=== PATIENT | female | born 1955 | race Caucasian/White ===

== ENCOUNTER → 2016-09-17 | Outpatient (CLI) | payer BC ==
[~2016-09-17] MED LIST: ATROVENT15 ML INH; ATROVENT30 ML INH; CALCIUM 600 +1 EAC1 PO; FLONASE 0.05%50 MCG INH; FLOVENT DISKUS50 MCG INH; IMITREX PO; MULTIVITAMINS PO; SYMBICORT160 MCG/4. INH; SYMBICORT80 MCG/4.1 INH; VITAMIN D31000 UNI2 PO; VITAMINC500 PO
== END ==
LOC: RAD 04:09
DX: Z12.31 Encounter for screening mammogram for malignant neoplasm of breast (principal)

== ENCOUNTER → 2017-09-29 | Outpatient (CLI) | payer BC, OTHER | LOC: RAD 09-22 12:00 | DX: Z12.31 Encounter for screening mammogram for malignant neoplasm of breast (principal) ==

== ENCOUNTER → 2018-09-30 | Outpatient (CLI) | payer BC, OTHER | LOC: RAD 03:52 | DX: Z12.31 Encounter for screening mammogram for malignant neoplasm of breast (principal) ==